=== PATIENT | female | born 1995 | race Caucasian/White ===

== ENCOUNTER 2023-07-09 16:27 | Emergency (ER) | payer MEDICAID ==
[~2023-07-09] VITALS: Ht 157.5 cm; Wt 63.5 kg
[2023-07-09 16:46] VITALS: BP 122/75; PULSE 85; RESP 16; TEMP 99.5; O2SAT 99
[2023-07-09 18:01] LABS: BASOPHILS % (AUTO) 0.4 % (0.0-2.0); EOSINOPHILS # (AUTO) 0.1 K/uL (0-0.4); EOSINOPHILS % (AUTO) 1.3 % (0.0-4.0); HEMATOCRIT 41.2 % (36-48); HEMOGLOBIN 13.8 g/dL (12.0-16.0); LYMPHOCYTES # (AUTO) 1.6 K/uL (2.5-16.5); LYMPHOCYTES % (AUTO) 20.6 % (20.5-51.1); MEAN CORPUSCULAR HEMOGLOBIN 30 pg (27-31); MEAN CORPUSCULAR HGB CONC 33 g/dL (33-37); MEAN CORPUSCULAR VOLUME 90.6 fL (80-94); MONOCYTES # (AUTO) 0.5 K/uL (0.8-1.0); MONOCYTES % (AUTO) 6.8 % (1.7-9.3); NEUTROPHILS # (AUTO) 5.6 K/uL (1.8-7.7); NEUTROPHILS % (AUTO) 70.9 % (42.2-75.2); PLATELET COUNT (AUTO) 199 K/uL (140-450); RED BLOOD CELL COUNT(AUTO) 4.55 MIL/uL (4.20-5.40)
== END 2023-07-09 19:52 | disposition left against medical advice (07) ==
LOC: MED 16:27
DX: O26.891 Other specified pregnancy related conditions, first trimester (principal); Z3A.01 Less than 8 weeks gestation of pregnancy; Z53.21 Procedure and treatment not carried out due to patient leaving prior to being seen by health care provider
CPT/HCPCS: 36415; 76817; 84702; 85025; 86900; 86901; 99281

== ENCOUNTER 2023-07-10 08:42 | Emergency (ER) | payer MEDICAID ==
[~2023-07-10] VITALS: Ht 157.5 cm; Wt 72.6 kg
[2023-07-10 09:16] VITALS: BP 98/61; PULSE 83; RESP 18; TEMP 98; O2SAT 98
[2023-07-10 11:27] VITALS: BP 98/61; PULSE 83; RESP 18; TEMP 98; O2SAT 98
== END 2023-07-10 11:27 | disposition home or self-care (01) ==
LOC: MED 08:42
DX: O26.891 Other specified pregnancy related conditions, first trimester (principal); Z3A.01 Less than 8 weeks gestation of pregnancy
CPT/HCPCS: 99281